=== PATIENT | female | born 1995 | race Caucasian/White ===

== ENCOUNTER → 2016-08-06 | Day surgery (SDC) | payer OTHER ==
[~2016-08-06] VITALS: Ht 167.6 cm; Wt 72.6 kg
[~2016-08-06] MED LIST: BUPIVACAINE HCL 0.25% 30 ML VIAL As Ordered ONE; CETI10TA PO; LIDOCAINE 1% MDV 20ML VIAL As Ordered ONE; LIDOCAINE 2% INJ 100 MG/5 ML SDV (FOR ANES.) As Ordered ONE; LIDOCAINE W/EPINEPHRINE 1% 20ML VIAL As Ordered ONE; LR 1,000 ML IV SCH; MIDAZOLAM INJ 2 MG/2 ML VIAL (J2250) As Ordered ONE; NORC1TAB4 PO; ONDANSETRON 4MG/2ML VIAL (J2405) As Ordered ONE; PROPOFOL 200 MG/20 ML VIAL As Ordered ONE; TRINTAB PO; fentaNYL 100 MCG/2 ML INJECTION (J3010) As Ordered ONE
[2016-08-06 06:39] LABS: CONTROL LINE UCG INT CTR LINE PRESENT
--- NOTE | 2016-08-06 09:04 | ROOPDOC ---
[facility] Report Of Operation Report of Operation DATE OF PROCEDURE: 08/06/16 PREPROCEDURE DIAGNOSES: lipoma left anterolateral leg (10 x 10 cm externally measured) POSTPROCEDURE DIAGNOSES: lipoma left anterolateral leg. PROCEDURE: Excision of lipoma, left anterolateral leg SURGEON: Ariana Simpson MD [employer]AR[employer] INSPECTOR: ANESTHESIA: MAC + local (1% lidocaine with epinephrine mixed with marcaine 0.25% ). ESTIMATED BLOOD LOSS: Approximately 5 mL. COMPLICATIONS: none REMARKS: well circumscribed lobulated lipoma removed. PROCEDURE NOTE: healthy 21 F with longstanding lipoma on her left leg causing her discomfort, and with increase in size DESCRIPTION OF PROCEDURE: Patient was placed supine on the operating room table. Her left leg was prepped and draped in usual sterile fashion. Patient then given IV sedation. After surgical timeout may be an her surgery. Externally the lipoma measures 10 x 10 cm located anterolaterally on her left lower leg. The area was infiltrated with local anesthesia circumferentially as well as intradermally on the planned skin incision. An incision vertically was created on top of the lobulated subcutaneous mass. Skin flap was created circumferentially. Once we reached the lipoma this was circumferentially dissected. This reaches to the surface of the tibia were it was dissected free with Bovie cautery. This was removed in one whole piece. I check for residual or satellite lipomatous and none was found. After checking for hemostasis. The skin flaps were closed in layers with 3-0 Vicryl at the superficial subcutaneous and dermal areas and 4-0 Monocryl placed subcuticularly to close the skin. Steri-Strips, Adaptic dressing, Kerlix roll and Coban was used for dressing. Patient was then awakened and brought to recovery in stable ARTURO SIMPSON MD Aug 06, 2016 08:56
[2016-08-06 09:25] VITALS: BP 117/57
== END | disposition home or self-care (01) ==
LOC: M SDC 05:54
PROVIDERS: ATTEND Surgery
DX: D17.24 Benign lipomatous neoplasm of skin and subcutaneous tissue of left leg (principal); R51 Headache; J30.2 Other seasonal allergic rhinitis; Z79.3 Long term (current) use of hormonal contraceptives; Z79.899 Other long term (current) drug therapy
CPT/HCPCS: 27632; 84703; 88304; J2250; J2405; J3010